=== PATIENT | male | born 1990 | race Caucasian/White ===

== ENCOUNTER 2017-01-25 11:39 | Emergency (ER) | payer OTHER | END 2017-01-25 12:56 | disposition home or self-care (01) | LOC: FER 11:39 | DX: K08.89 Other specified disorders of teeth and supporting structures (principal); F17.210 Nicotine dependence, cigarettes, uncomplicated; Z91.09 Other allergy status, other than to drugs and biological substances | CPT/HCPCS: 99282 ==

== ENCOUNTER 2017-05-07 09:06 | Emergency (ER) | payer OTHER | END 2017-05-07 11:15 | disposition home or self-care (01) | LOC: FER 09:06 | DX: S62.316A Displaced fracture of base of fifth metacarpal bone, right hand, initial encounter for closed fracture (principal); W22.09XA Striking against other stationary object, initial encounter; Y92.000 Kitchen of unspecified non-institutional (private) residence as the place of occurrence of the external cause; F17.200 Nicotine dependence, unspecified, uncomplicated | CPT/HCPCS: 73130 ==

== ENCOUNTER 2021-02-18 00:53 | Emergency (ER) | payer OTHER ==
[2021-02-18] MEDS ORDERED: KEFLEX250 MG PO (02:22)
[2021-02-18] MEDS ORDERED: NORCO 5-325 TA1 EACH PO (02:50)
== END 2021-02-18 03:09 | disposition home or self-care (01) ==
LOC: FER 00:53
DX: S02.2XXA Fracture of nasal bones, initial encounter for closed fracture (principal); S00.81XA Abrasion of other part of head, initial encounter; F17.210 Nicotine dependence, cigarettes, uncomplicated; Z85.841 Personal history of malignant neoplasm of brain; Y04.2XXA Assault by strike against or bumped into by another person, initial encounter; Y92.009 Unspecified place in unspecified non-institutional (private) residence as the place of occurrence of the external cause
CPT/HCPCS: 70450; 70486; 72125

== ENCOUNTER 2021-09-03 09:01 | Emergency (ER) | payer SELFPAY ==
[~2021-09-03 09:01] MED LIST: KEFLEX250 MG PO; NORCO 5-325 TA1 EACH PO
[2021-09-03] MEDS ORDERED: AMOXICILLIN500 M1 PO (09:48)
[2021-09-03] MEDS ORDERED: NAPROXEN500 MG PO (09:48)
== END 2021-09-03 10:05 | disposition home or self-care (01) ==
LOC: FER 09:01
DX: K04.7 Periapical abscess without sinus (principal); K02.9 Dental caries, unspecified; F17.210 Nicotine dependence, cigarettes, uncomplicated
CPT/HCPCS: 99282; Q0163

== ENCOUNTER 2021-09-20 17:06 | Emergency (ER) | payer OTHER ==
[~2021-09-20 17:06] MED LIST changes: +AMOXICILLIN500 M1 PO; +NAPROXEN500 MG PO
[2021-09-20 18:14] LABS: BILIRUBIN NEGATIVE (NEGATIVE); BLOOD NEGATIVE Ery/uL (NEGATIVE); CLARITY CLEAR (CLEAR); COLOR YELLOW (YELLOW); GLUCOSE (U) NORMAL (NORMAL); LEUKOCYTES NEGATIVE Leu/uL (NEGATIVE); NITRITE NEGATIVE (NEGATIVE); PROTEIN NEGATIVE (NEGATIVE); UROBILINOGEN 0.2 mg/dL (0.2-1.0)
[2021-09-20 18:37] LABS: ALBUMIN 4.2 g/dL (3.4-5.0); BILIRUBIN - TOTAL 0.2 mg/dL (0.2-1.0); BUN/CREAT RATIO (CALC) 9.8 RATIO; CREATININE 0.92 mg/dL (0.67-1.17); GLOBULIN (CALCULATION) 3.3 g/dL; POTASSIUM 4.9 mmol/L (3.5-5.1); TOTAL PROTEIN 7.5 g/dL (6.4-8.2)
[2021-09-20 19:02] LABS: BASOPHIL 0.3 % (0-2); EOSINOPHIL 0.1 % (0-5); HCT 47.8 % (42.0-52.0); HGB 16.1 g/dl (13.2-18.0); LYMPHOCYTE 7.8 % (15-48); MCH 32.9 pg (25.0-31.0); MCHC 33.7 g/dL (32.0-36.0); MCV 97.8 fL (78.0-100.0); MONOCYTE 5.4 % (0-12); MPV 11.9 fL (6.0-9.5); NEUTROPHIL 85.3 % (41-80); NRBC 0; PLT 254 K/uL (150-400); RBC 4.89 M/uL (4.70-6.00); RDW 12.1 % (11.5-14.0); WBC 17.7 K/uL (4.0-10.5)
[2021-09-20] MEDS ORDERED: NORCO 5-325 TA1 EACH PO (21:10)
[2021-09-20] MEDS ORDERED: IBUPROFEN800 MG PO (21:10)
[2021-09-20] MEDS ORDERED: CYCLOBENZAPRINE10 MG PO (21:10)
== END 2021-09-20 21:35 | disposition home or self-care (01) ==
LOC: FER 17:06
PROVIDERS: Emergency Medicine Emergency Medical Services
DX: S80.02XA Contusion of left knee, initial encounter (principal); S80.01XA Contusion of right knee, initial encounter; S00.83XA Contusion of other part of head, initial encounter; S20.412A Abrasion of left back wall of thorax, initial encounter; S20.411A Abrasion of right back wall of thorax, initial encounter; S30.810A Abrasion of lower back and pelvis, initial encounter; F17.210 Nicotine dependence, cigarettes, uncomplicated; Z23 Encounter for immunization; V48.6XXA Car passenger injured in noncollision transport accident in traffic accident, initial encounter; Y92.410 Unspecified street and highway as the place of occurrence of the external cause
CPT/HCPCS: 36415; 70450; 71260; 72125; 72128; 72131; 73030; 73564; 80053; 81003; 83605; 83690; 84484; 85025; 90471; J1885; Q9967